=== PATIENT | male | born 1970 | race Caucasian/White ===

== ENCOUNTER → 2018-10-28 | Outpatient (CLI) | payer OTHER ==
--- NOTE | 2018-10-28 16:47 | RAD ---
PA and lateral chest. HISTORY: Intermittent chest pain PA and lateral views were taken of the chest. Lungs are clear. Heart is normal in size without heart failure. There is no pleural effusion. IMPRESSION: 1. No acute chest disease. Electronically signed by: Wilmer Barnett MD (10/28/2018 4:44 PM) [facility]
== END | disposition home or self-care (01) ==
LOC: PMG 14:33
PROVIDERS: ATTEND Registered Nurse
DX: R07.9 Chest pain, unspecified (principal)
CPT/HCPCS: 71046